=== PATIENT | male | born 1960 | race Two or more races ===

== ENCOUNTER 2016-12-03 17:59 | Emergency (ER) | payer OTHER ==
[~2016-12-03] VITALS: Ht 177.8 cm; Wt 90.7 kg
[2016-12-03 18:20] VITALS: BP 167/76
--- NOTE | 2016-12-03 18:36 | PHYS DOC ---
Past History Past Medical History: No Pertinent History Past Surgical History: Other Alcohol Use: None Drug Use: None Adult General Chief Complaint Chief Complaint: LACERATION/AVULSION HPI HPI Is a pleasant 56-year-old male who presents with a laceration sustained while cutting food for dinner tonight. Laceration occurred approximately 30 minutes prior to arrival sharp knife. Patient's immunizations are up-to-date patient denies any foreign body sensation came in tonight because bleeding with nonstop with direct pressure to home. Laceration is small on the ulnar surface of the dorsum of the wrist on the left hand. He is right-hand dominant. Pain is minimal to of 10 there is no numbness and tingling to the hand. There is no weakness to extension and flexion of the fingers or wrist. Review of Systems Review of Systems Constitutional: Denies fever or chills [] Musculoskeletal: Denies back pain or joint pain [] Integument: Denies rash or skin lesions [] Neurologic: Denies headache, focal weakness or sensory changes [] Physical Exam Physical Exam Constitutional: Well developed, well nourished, no acute distress, non-toxic appearance. [] Cardiovascular:Heart rate regular rhythm, no murmur [] Lungs & Thorax: Bilateral breath sounds clear to auscultation [] Extremities: No tenderness, no cyanosis, no clubbing, ROM intact, no edema. [] Small one similar linear laceration on the ulnar surface of the wrist or to the dorsum of the hand. Non-bleeding no foreign body noted no numbness and tinea to light touch proprioception over the distribution of the hand. Patient has normal flexion and extension at the wrist. Normal flexion and extension of the fingers without issue. Floor the wound visualized no foreign body. Neurologic: Alert and oriented X 3, normal motor function, normal sensory function, no focal deficits noted. [] Current Patient Data Vital Signs Vital Signs Date Time Temp Pulse Resp B/P (MAP) Pulse Ox O2 Delivery O2 Flow Rate FiO2 12/03/16 18:20 98.0 86 20 98 Room Air EKG EKG [] Radiology/Procedures Radiology/Procedures [] Course & Med Decision Making Course & Med Decision Making Pertinent Labs and Imaging studies reviewed. (See chart for details) issue with a small laceration on the ulnar surface of the left wrist. Laceration size 1 cm x 2 mm x 1 mm with length and width. Floor of the wound is clean no foreign body no active bleeding. Patient gave verbal consent for repair. Explained our plan. Use 1% lidocaine 3 mL local infiltrate and the wound edges. Wounds Cleaned with Betadine and Chlorhexidine. With great analgesia and anesthetic control repaired laceration with 4-0 Ethilon. Interrupted sutures 3 closure well-tolerated well approximated. There is no undermining of the wound edges no need for any kind of debridement debridement of the wound itself. Wound closure was then washed with Betadine to remove blood. Then bandaged with bacitracin and clean bandage. he tolerated wound repair well with no issues no active bleeding no competitions Impression: Laceration wrist no neurologic or vascular components involvement. Disposition: Discharged home with wound care follow-up his primary care doctor in 10 days for suture removal. We discussed possible retained foreign body within the wound although none was visualized somebody could be retained. Patient's initial is up to date [] Dragon Disclaimer Dragon Disclaimer This chart was dictated in whole or in part using Voice Recognition software in a busy, high-work load, and often noisy Emergency Department environment. It may contain unintended and wholly unrecognized errors or omissions. Departure Departure: Impression: Primary Impression: Laceration Disposition: 01 HOME, SELF-CARE Condition: GOOD Referrals: MIRZA FARFAN MD (PCP) Patient Instructions: Laceration Care, Adult Additional Instructions: Please return for any signs of his infection or feel any question concerns. I would Advise a follow-up with your primary care doctor or the sutures removed in 10 days. AUGUSTINA DURANT MD Dec 03, 2016 18:36
[2016-12-04] MEDS ORDERED: BACITRACIN ZINC TOPICAL OINT PACKET. TP SCH (09:00)
== END 2016-12-03 18:38 | disposition home or self-care (01) ==
LOC: ER 17:59
DX: S61.512A Laceration without foreign body of left wrist, initial encounter (principal); W26.0XXA Contact with knife, initial encounter; Y93.89 Activity, other specified; Y99.8 Other external cause status; Y92.89 Other specified places as the place of occurrence of the external cause
CPT/HCPCS: 12001; 99283-25

== ENCOUNTER 2019-12-23 15:53 | Emergency (ER) | payer OTHER ==
[~2019-12-23] VITALS: Ht 177.8 cm; Wt 121.4 kg
--- NOTE | 2019-12-23 16:13 | PHYS DOC ---
Past History Past Medical History: No Pertinent History Past Surgical History: Other Alcohol Use: None Drug Use: None General Adult EDM: Chief Complaint: LOWER EXTREMITY SWELLING HPI: HPI: Patient is a 59-year-old male presenting to the ED with a chief complaint of left leg swelling and tenderness. Patient states that the symptoms are not present for the last 1 week. Patient states that he has been working from home since early July due to the coronavirus pandemic. Patient states that every hour he gets up and walks around. Patient states that he takes aspirin 81 mg tablet. Patient denies history of blood clots. Patient denies chest pain, shortness of breath, fever or chills. Review of Systems: Review of Systems: Constitutional: Denies fever or chills Eyes: Denies change in visual acuity HENT: Denies nasal congestion or sore throat Respiratory: Denies cough or shortness of breath Cardiovascular: Denies chest pain or edema GI: Denies abdominal pain, nausea, vomiting, bloody stools or diarrhea : Denies dysuria Musculoskeletal: Complains of mild tenderness and swelling in the left lower extremity Heart Score: Risk Factors: Risk Factors: DM, Current or recent (<one month) smoker, HTN, HLP, family h istory of CAD, obesity. Risk Scores: Score 0 - 3: 2.5% MACE over next 6 weeks - Discharge Home Score 4 - 6: 20.3% MACE over next 6 weeks - Admit for Clinical Observation Score 7 - 10: 72.7% MACE over next 6 weeks - Early Invasive Strategies Allergies: Allergies: Allergies Coded Allergies Type Severity Reaction Last Updated Verified No Known Drug Allergies 12/23/19 No Physical Exam: PE: Constitutional: Well developed, well nourished, no acute distress, non-toxic appearance. [] HENT: Normocephalic, atraumatic Eyes: EOMI Neck: Normal range of motion, Respiratory: No respiratory distress Extremities: Mild swelling in the left lower extremity. Neurovascularly intact. Neurologic: Alert and oriented X 3 EKG: EKG: [] Radiology/Procedures: Radiology/Procedures: [] Impressions: US of LLE Impression: No evidence of DVT. Course & Med Decision Making: Course & Med Decision Making Pertinent Imaging studies reviewed. (See chart for details) Ordered ultrasound of the left lower extremity. US neg for DVT. Discussed results and plan of care with patient. Patient is instructed to follow up with PCP in one to 2 days. Appropriate discharge instructions given to patient to return to the ED or to seek immediate medical evaluation. Patient is instructed to return to the ED if symptoms worsen or if any concerns. Mara Disclaimer: Mara Disclaimer: This electronic medical record was generated, in whole or in part, using a voice recognition dictation system. Departure Departure: Impression: Primary Impression: Leg pain, left Disposition: 01 HOME/RESIDENCE PRIOR TO ADM Condition: STABLE Referrals: PCP,UNKNOWN (PCP) Patient Instructions: Leg Cramps Additional Instructions: Discussed results and plan of care with patient. Patient is instructed to follow up with PCP in one to 2 days. Appropriate discharge instructions given to patient to return to the ED or to seek immediate medical evaluation. Patient is instructed to return to the ED if symptoms worsen or if any concerns. Justification of Admission: Justification of Admission: Justification of Admission Dx: JOCELYN Helm DO Dec 23, 2019 16:13
--- NOTE | 2019-12-23 16:54 | RAD ---
Left Lower Extremity Venous Doppler Ultrasound History: Reason: swelling / Spl. Instructions: / History: Comparison: None Procedure: Color flow, duplex, spectral analysis and 2D images are obtained with and without compression in the area of the common femoral vein, superficial femoral vein - femoral vein junction, main femoral vein (superficial femoral vein) and popliteal vein. Veins of the proximal calf are also imaged. Findings: There is normal duplex flow, color flow and compressibility of all visualized vein segments. No evidence of deep venous thrombus is present. Impression: No evidence of DVT. Electronically signed by: Blaine Strange III, MD (12/23/2019 4:52 PM) [id number]
[2019-12-23 17:01] VITALS: BP 151/96
== END 2019-12-23 17:05 | disposition home or self-care (01) ==
LOC: ER 15:53
DX: M79.662 Pain in left lower leg (principal); R60.0 Localized edema
CPT/HCPCS: 93971; 99284